=== PATIENT | female | born 1955 ===

== ENCOUNTER 2021-03-31 10:31 | Emergency (ER) | payer OTHER ==
[~2021-03-31] VITALS: Ht 162.6 cm; Wt 95.3 kg
[2021-03-31] MEDS ORDERED: COZAAR100 MG (11:14)
[2021-03-31] MEDS ORDERED: TENORMIN25 MG (11:14)
[2021-03-31] MEDS ORDERED: PLAVIX75 MG (11:15)
[2021-03-31] MEDS ORDERED: NEURONTIN800 MG (11:15)
[2021-03-31] MEDS ORDERED: JANUMET XR 1001 EACH (11:15)
[2021-03-31] MEDS ORDERED: FENOFIBRIC ACI105 MG (11:16)
[2021-03-31] MEDS ORDERED: PROTONIX40 MG (11:16)
[2021-03-31] MEDS ORDERED: LANTUS SOL100 UNIT/1 (11:17)
[2021-03-31] MEDS ORDERED: AMBIEN10 MG (11:18)
== END 2021-03-31 15:44 | disposition home or self-care (01) ==
LOC: ER 10:31
DX: K29.70 Gastritis, unspecified, without bleeding (principal)